=== PATIENT | male | born 1955 | race Caucasian/White ===

== ENCOUNTER 2019-07-26 21:15 | Emergency (ER) | payer MEDICARE ==
[~2019-07-26] VITALS: Ht 175.3 cm; Wt 76.3 kg
[2019-07-26 21:20] VITALS: BP 121/69
--- NOTE | 2019-07-26 21:26 | PHYS DOC ---
Past History Past Medical History: Alcoholism, Anxiety, Bronchitis, COPD Adult General Chief Complaint Chief Complaint: ".. I think it just anxiety... I am under a lot of stress... I work at the [employer]... and one my fellow works had pneumonia... I ve been more short of breath with coughing.. last 10 days.. but the cough is worse the last couple days... but I got to thinking about it.. and she wanted me get checked out...." HPI HPI Patient is a 64 year old MALE who presents with above hx and complaints of coughing and burning in his chest the past week to 10 days. Discomfort is central and related to coughing. Patient states he does have burning in his chest after he has a coughing episode. Patient currently working at [employer].. Pt. does smoke. Hx. of previous episodes of bronchitis and COPD. patient has had periodic episodes of COPD exacerbations in the past. Patient has been around other workers that had upper respiratory infections and wanted had pneumonia. Patient states he does have a history of anxiety disorder. Patient does have a history of alcohol abuse. No history of previous cardiac disorders. 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 Patient was accompanied with his daughter. Review of Systems Review of Systems Constitutional: Denies fever or chills [] Eyes: Denies change in visual acuity, redness, or eye pain [] HENT: Denies nasal congestion or sore throat [] Respiratory: History of nonproductive cough and wheezing Cardiovascular: No additional information not addressed in HPI [] GI: Denies abdominal pain, nausea, vomiting, bloody stools or diarrhea [] : Denies dysuria or hematuria [] Musculoskeletal: Denies back pain or joint pain [] Integument: Denies rash or skin lesions [] Neurologic: Denies headache, focal weakness or sensory changes [] Endocrine: Denies polyuria or polydipsia [] All other systems were reviewed and found to be within normal limits, except as documented in this note. Family History Family History Noncontributory Current Medications Current Medications See nursing for home meds Allergies Allergies No known drug allergies Physical Exam Physical Exam Constitutional: no acute distress, non-toxic appearance. [] HENT: Normocephalic, atraumatic, bilateral external ears normal, oropharynx moist, no oral exudates, nose scar. Eyes: PERRLA, EOMI, conjunctiva normal, no discharge. [] Neck: Normal range of motion, no tenderness, supple, no stridor. [] Cardiovascular:Heart rate regular rhythm, no murmur [] Lungs & Thorax: Bilateral breath sounds equal apex with scattered wheezing on auscultation [] Abdomen: Bowel sounds normal, soft, no tenderness, no masses, no pulsatile masses. [] Skin: Warm, dry, no erythema, no rash. [] Back: No tenderness, no CVA tenderness. [] Extremities: No tenderness, no cyanosis, no clubbing, ROM intact, no edema. No cording appreciated Neurologic: Alert and oriented X 3, normal motor function, normal sensory function, no focal deficits noted. [] Psychologic: Affect anxious, judgement normal, mood normal. [] EKG EKG My interpretation EKG shows a sinus rhythm at 68 bpm. There is some nonspecific contour abnormalities anterior septal region. But no findings acute STEMI with contralateral changes.[] Radiology/Procedures Radiology/Procedures [][place] [address] IMAGING REPORT Signed PATIENT: FRANCIS GALVEZ ACCOUNT: [id number] : 1955 LOCATION: ER AGE: 64 SEX: M EXAM STATUS: REG ER ORD. PHYSICIAN: MOHSEN RICHMOND MD REASON: Chest pain, difficulty breathing PROCEDURE: CHEST PA & LATERAL Exam: Chest 2 view INDICATION: Chest pain TECHNIQUE: Frontal and lateral views the chest Comparisons: None FINDINGS: The cardiomediastinal silhouette and pulmonary vessels are within normal limits. The lung and pleural spaces are clear. IMPRESSION: No acute cardiopulmonary process. Electronically signed by: Linda Garcia MD (07/26/2019 10:33 PM) [facility] DICTATED AND SIGNED BY: LINDA GARCIA MD DATE: 07/26/19 2233 CC: MOHSEN RICHMOND MD; PCP,NO ~ Course & Med Decision Making Course & Med Decision Making Pertinent Labs and Imaging studies reviewed. (See chart for details) Patient is to stop smoking. Patient take Zithromax 250 mg a day for 5 days. Patient take prednisone 50 mg day for 5 days. Patient take a daily aspirin. Patient uses MDI 2 puffs 4 times a day. Patient take Tylenol and ibuprofen as needed for discomfort. Patient follow-up with outpatient primary care. Consider outpatient stress testing if continued problems with dyspnea patient return if any concerns. Impression: 1. Bronchitis- COPD exacerbation 2. Hx. Anxiety Disorder 3. Hx. of alcoholism 4. Tobacco use [] Dragon Disclaimer Dragon Disclaimer This electronic medical record was generated, in whole or in part, using a voice recognition dictation system. Departure Departure: Disposition: HOME/RESIDENCE PRIOR TO ADM Condition: STABLE Referrals: PCP,NO (PCP) Scripts Azithromycin (AZITHROMYCIN TABLET) 250 Mg Tablet 250 MG PO DAILY for ANTI-BIOTIC for 5 Days, #5 TAB 0 Refills Prov: MOHSEN RICHMOND MD 07/26/19 Prednisone (PREDNISONE) 50 Mg Tablet 1 TAB PO DAILY for bronchitis, #5 TAB Prov: MOHSEN RICHMOND MD 07/26/19 Dragon Disclaimer This chart was dictated in whole or in part using Voice Recognition software in a busy, high-work load, and often noisy Emergency Department environment. It may contain unintended and wholly unrecognized errors or omissions. Dragon Disclaimer This chart was dictated in whole or in part using Voice Recognition software in a busy, high-work load, and often noisy Emergency Department environment. It may contain unintended and wholly unrecognized errors or omissions. MOHSEN RICHMOND MD Jul 26, 2019 21:26
[2019-07-26] MEDS: LORazepam 1 MG TABLET PO ONE (22:10)
[2019-07-26] MEDS: IV RINGERS SOLUTION,LACTATED 1,000 ML IV SCH (22:10)
[2019-07-26] MEDS: ALBUTEROL SULFATE 8GM INHALER. IH ONE (22:10)
[2019-07-26 22:37] LABS: BASO # 0.1 x10^3/uL (0.0-0.2); BASO % 1 % (0-3); EOS # 0.2 x10^3/uL (0.0-0.7); EOS % 2 % (0-3); HEMATOCRIT 43.2 % (39.0-53.0); LYMPH # 2.7 x10^3/uL (1.0-4.8); LYMPH % 23 % (24-48); MEAN CORPUSCULAR HEMOGLOBIN 32 pg (25-35); MEAN CORPUSCULAR HGB CONC 35 g/dL (31-37); MEAN CORPUSCULAR VOLUME 93 fL (79-100); MONO # 0.7 x10^3/uL (0.0-1.1); MONO % 6 % (0-9); NEUT % 69 % (31-73); PLATELET COUNT 231 x10^3/uL (140-400); RED BLOOD COUNT 4.66 x10^6/uL (4.30-5.70); RED CELL DISTRIBUTION WIDTH 12.6 % (11.5-14.5); WHITE BLOOD COUNT 11.6 x10^3/uL (4.0-11.0)
--- NOTE | 2019-07-26 22:37 | RAD ---
Exam: Chest 2 view INDICATION: Chest pain TECHNIQUE: Frontal and lateral views the chest Comparisons: None FINDINGS: The cardiomediastinal silhouette and pulmonary vessels are within normal limits. The lung and pleural spaces are clear. IMPRESSION: No acute cardiopulmonary process. Electronically signed by: Sánchez Hua MD (07/26/2019 10:33 PM) [facility]
[2019-07-26] MEDS: ASPIRIN 81 MG TAB.CHEW PO ONE (22:51)
[2019-07-26 23:05] LABS: ALBUMIN 3.7 g/dL (3.4-5.0); DIRECT BILIRUBIN 0.1 mg/dL (0.0-0.2); MAGNESIUM 1.8 mg/dL (1.8-2.4); TOTAL BILIRUBIN 0.6 mg/dL (0.2-1.0); TOTAL PROTEIN 6.8 g/dL (6.4-8.2)
[2019-07-26] MEDS ORDERED: PRED50TA PO (23:26)
[2019-07-26] MEDS ORDERED: AZIT250T6 PO (23:26)
[2019-07-26] MEDS: AZITHROMYCIN 250 MG TABLET. PO ONE (23:52)
[2019-07-26] MEDS: POTASSIUM CHLORIDE 20 MEQ TABLET.ER. PO ONE (23:53)
[2019-07-26] MEDS: predniSONE 10 MG TABLET PO ONE (23:53)
[2019-07-26] MEDS: MAGNESIUM HYDROXIDE 2,400 MG/30 ML ORAL.SUSP. PO ONE (23:53)
[2019-07-27 10:45] LABS: THYROID STIM HORMONE (TSH) 1.6 uIU/mL (0.358-3.740)
--- NOTE | 2019-07-29 12:18 | EKG ---
[address] [address] Test Date: 2019-07-26 Test Time: 21:56:30 Pat Name: FRANCIS GALVEZ Department: Room: Gender: M [employer]ist: : 1955 Requested By: MOHSEN RICHMOND Order Number: [id number] Reading MD: Luis E Castillo MD Measurements Intervals [place] Rate: 68 P: 49 MT: 186 QRS: 1 QRSD: 86 T: 62 QT: 386 QTc: 415 Interpretive Statements SINUS RHYTHM NON-SPECIFIC ST/T CHANGES Electronically Signed On 07-30-2019 14:09:43 [employer] by Luis E Castillo MD
== END 2019-07-27 00:05 | disposition home or self-care (01) ==
LOC: ER 21:15
DX: J44.9 Chronic obstructive pulmonary disease, unspecified (principal); F41.9 Anxiety disorder, unspecified; F10.20 Alcohol dependence, uncomplicated; Y90.9 Presence of alcohol in blood, level not specified; Z72.0 Tobacco use
CPT/HCPCS: 36415; 71046; 80048; 80061; 80076; 82550; 83690; 83735; 83880; 84443; 84484; 85025; 85379; 85610; 85730; 93005; 94640; 96360; 96361; J0456; J7120; J7512; J7613; 99285-25